=== PATIENT | male | born 2000 | race Asian ===

== ENCOUNTER 2020-12-16 21:47 | Emergency (ER) | payer SELFPAY ==
[~2020-12-16] VITALS: Ht 175.3 cm; Wt 63.5 kg
[2020-12-16 21:54] VITALS: BP_SYST 124
[2020-12-16] MEDS ORDERED: LIDOCAINE/EPI 1% 1:100000 20 ML VIAL INJ ONE ×2 (23:30→23:34)
[2020-12-16] MEDS ORDERED: BACITRACIN 1 GM OINT TP ONE (23:49)
[2020-12-17 01:50] VITALS: BP_SYST 118
== END 2020-12-17 01:45 | disposition home or self-care (01) ==
LOC: SED 21:47
DX: S01.81XA Laceration without foreign body of other part of head, initial encounter (principal); V43.62XA Car passenger injured in collision with other type car in traffic accident, initial encounter; Y93.89 Activity, other specified; Y92.89 Other specified places as the place of occurrence of the external cause; Y99.8 Other external cause status
CPT/HCPCS: 99284